=== PATIENT | male | born 2000 | race Caucasian/White ===

== ENCOUNTER 2019-04-19 14:19 | Emergency (ER) | payer OTHER ==
[~2019-04-19] VITALS: Ht 177.8 cm; Wt 85.6 kg
[~2019-04-19 14:19] MED LIST: ACET325T14 PO; AMOX-291 PO; No meds per mother
[2019-04-19 14:31] VITALS: BP 145/78
--- NOTE | 2019-04-19 15:43 | NUR ---
PT TO ROOM FROM LOBBY
--- NOTE | 2019-04-19 16:25 | NUR ---
Patient given sling, discharge instructions and Rx, they have confirmed that they understand the instructions. Patient ambulatory with steady gait.
== END 2019-04-19 16:47 | disposition home or self-care (01) ==
LOC: ED 16:20
DX: S42.022A Displaced fracture of shaft of left clavicle, initial encounter for closed fracture (principal); W00.0XXA Fall on same level due to ice and snow, initial encounter; Y93.23 Activity, snow (alpine) (downhill) skiing, snowboarding, sledding, tobogganing and snow tubing; Y92.89 Other specified places as the place of occurrence of the external cause; Y99.8 Other external cause status
CPT/HCPCS: 99283

== ENCOUNTER 2020-09-17 09:49 | Emergency (ER) | payer OTHER ==
[~2020-09-17] VITALS: Ht 177.8 cm; Wt 85.8 kg
[2020-09-17 10:32] LABS: MICROSCOPIC NOT IND
--- NOTE | 2020-09-17 10:43 | NUR ---
risk control consultant: attempted to move pt from lobby to room, no answer in lobby
--- NOTE | 2020-09-17 10:51 | NUR ---
fur stylist: attempted to move pt from lobby to room, no answer in lobby
--- NOTE | 2020-09-17 10:55 | NUR ---
deputy building guard: pt from lobby to room 25
--- NOTE | 2020-09-17 11:00 | NUR ---
PT STATES HAD RIGHT TESTICLE SWOLLEN YESTERDAY AM TODAY IT WAS WORSE. HAS HX OF THIS BUT NOT THIS BAD. PT DENIES INJURY TO AREA. SLIGHT PAIN UPON URINATION PUT HAS GONE AWAY WHEN GAVE SAMPLE FOR UA.
[2020-09-17 11:01] VITALS: BP 132/39
--- NOTE | 2020-09-17 11:11 | NUR ---
PROVIDER AT BEDSIDE
--- NOTE | 2020-09-17 12:38 | NUR ---
Patient given discharge instructions and they have confirmed that they understand the instructions. Patient ambulatory with steady gait. No questions at time of discharge.
== END 2020-09-17 12:39 | disposition home or self-care (01) ==
LOC: ED 12:14
DX: N45.1 Epididymitis (principal); Z90.89 Acquired absence of other organs
CPT/HCPCS: 76870; 81003; 99284